=== PATIENT | male | born 1955 | race Caucasian/White ===

== ENCOUNTER 2018-03-11 07:23 | Inpatient (IN) | payer MEDICARE ==
[2018-03-11] VITALS (7 sets, daily range): BP systolic 104–133; BP diastolic 56–79; PULSE 47–69; RESP 16–20; TEMP 97.6–98; O2SAT 92–97
[~2018-03-11] VITALS: Ht 177.8 cm; Wt 113.4 kg
[~2018-03-11 07:23] MED LIST: ASPI1TAB69 PO; ISOS30TA3 PO; LIPI10TA PO; METO10TA PO; TOPR25TA PO; WALKER WHEELS/F1 MIS
[2018-03-11] MEDS ORDERED: LIDOCAINE HCL 1% 10 ML VIAL SQ ONE (07:24)
[2018-03-11] MEDS ORDERED: ASPI81TA81 PO (08:34)
[2018-03-11 08:44] LABS: AUTOMATED NEUTROPHIL # 3.5 TH/MM3 (1.8-7.7); BASOPHIL % 0.4 % (0.0-2.0); EOSINOPHIL # 0.3 TH/MM3 (0-0.4); EOSINOPHIL % 4.5 % (0.0-4.0); HEMATOCRIT 46.3 % (39.0-51.0); HEMOGLOBIN 15.6 GM/DL (13.0-17.0); LYMPH % 29.6 % (9.0-44.0); LYMPHOCYTE # 1.8 TH/MM3 (1.0-4.8); MEAN CORPUSCULAR HEMOGLOBIN 31.7 PG (27.0-34.0); MEAN CORPUSCULAR HGB CONC 33.8 % (32.0-36.0); MEAN PLATELET VOLUME 7.5 FL (7.0-11.0); MONO % 8.8 % (0.0-8.0); MONOCYTE # 0.5 TH/MM3 (0-0.9); NEUT % 56.7 % (16.0-70.0); PLATELET COUNT 228 TH/MM3 (150-450); RED BLOOD COUNT 4.92 MIL/MM3 (4.50-5.90); RED CELL DISTRIBUTION WIDTH 14.1 % (11.6-17.2); WHITE BLOOD COUNT 6.1 TH/MM3 (4.0-11.0)
[2018-03-11 08:51] LABS: PROTHROMBIN TIME - PATIENT 10.4 SEC (9.8-11.6)
[2018-03-11 09:03] LABS: BICARBONATE 21.3 MEQ/L (21.0-32.0); CALCIUM 8.2 MG/DL (8.5-10.1); CREATININE 0.74 MG/DL (0.60-1.30)
[2018-03-11] MEDS ORDERED: GADODIAMIDE PF 287 MG/ML 5 ML VIAL (for RAD MRI) IVCONTRAST ONE (09:14)
[2018-03-11] MEDS ORDERED: MIDAZOLAM HCL 2 MG/2 ML VIAL ONE ×3 (10:03→11:09)
--- NOTE | 2018-03-11 10:09 | RADRPT ---
EXAM DATE: 03/11/2018 9:43 AM EDT AGE/SEX: 62 years / Male INDICATIONS: Liver mass. CLINICAL DATA: This is the patient's initial encounter. Patient reports that signs and symptoms have been present for 2 weeks and indicates a pain score of 0/10. MEDICAL/SURGICAL HISTORY: Carcinoma, colon. CABG. Colon resection. foot surgery COMPARISON: [facility], CT ABDOMEN AND PELVIS W/ CONTRAST, 01/13/2018. . TECHNIQUE: Multiplanar, multisequence images of the abdomen were obtained prior to and following adm inistration of 21 ml Omniscan (gadodiamide) contrast as a single exam dose with dynamic multiphase te chnique. FINDINGS: Liver: The liver measures 19.2 cm in length. It demonstrates signal loss on out of phase imaging kvng cating steatosis. 2 liver lesions are identified and are located within segment 4. The largest measur es 4.5 x 3.4 x 4.3 cm. It demonstrates heterogeneous mildly increased T2 signal. Slightly inferiorly and medially to this lesion is another lesion measuring 10 x 8 mm. Both lesions demonstrate periphera l rim-like enhancement with heterogeneous internal enhancement. Hepatic vasculature is within normal limits. Gallbladder: No gallstones visualized. There is no wall thickening or inflammation. There is a small cystic area in the gallbladder fundus. Spleen: Within normal limits. Pancreas: Within normal limits. Adrenals: Within normal limits. Kidneys: Symmetric size and enhancement. No hydronephrosis or mass. There is a simple cyst of the ele mbar or pole kidney measuring 12 mm and a simple cyst in the left mid kidney measuring 1.7 cm and 1.0 cm. No concerning liver lesion is identified. Other: Aorta is nonaneurysmal. No lymphadenopathy is visualized. The remaining surrounding structur es demonstrate no acute abnormality. There is moderate atherosclerotic disease of the abdominal aorta . Median sternotomy wires are present. There is a partially visualized midline hernia containing fat and small bowel. CONCLUSION: 1. Hepatomegaly with steatosis. 2 suspicious liver lesions are identified with the largest measuring 4.5 cm. The enhancement pattern and history is suspicious for adenocarcinoma metastases. Additionall y, the larger liver lesion has increased in size from the prior study when it measured up to 3.9 cm a nd the second smaller lesion is new. 2. Nonacute findings include moderate atherosclerotic disease and partially visualized anterior abdo isaac wall hernia. Electronically signed by: Fritz Castillo MD 03/11/2018 10:07 AM EDT
[2018-03-11] MEDS: SODIUM CHLOR 0.9% 1000 ML IV SCH ×2 (10:15→19:23)
--- NOTE | 2018-03-11 11:40 | PD.RAD ---
Post CT Procedure Prog Note Pre Procedure Diagnosis: (1) Liver lesion (2) Cancer, colon Post Procedure Diagnosis: (1) Liver lesion (2) Cancer, colon Procedure Date: Mar 11, 2018 Supervising Radiologist: Firtz Castillo Estimated blood loss: minimal. Anesthesia: Conscious Sedation Plan of Activity Patient to Unit: ROPU Patient Condition: Good See PACS Report for procedural detail/treatment Biopsy Imaging Guidance: CT Side: Right Biopsy Procedure: Liver Site: segment 4 (liver dome) lesion Specimen: Core Biopsy Findings: lesion located in far dome of liver. Crossed pleural space during biopsy with development of pneumothorax requiring chest tube. Plan to ROPU then admit to hospitalist service for medical management during admission. We will manage chest tube. Fritz Castillo MD Mar 11, 2018 11:40
--- NOTE | 2018-03-11 11:54 | RADRPT ---
EXAM DATE: 03/11/2018 11:47 AM EDT AGE/SEX: 62 years / Male INDICATIONS: Chest tube placement CLINICAL DATA: This is the patient's initial encounter. Patient reports that signs and symptoms have been present for 1 day and indicates a pain score of 10/10. MEDICAL/SURGICAL HISTORY: . Metastasis liver Chest tube, right. COMPARISON: No prior exams available for comparison. FINDINGS: Pigtail right chest tube is in place and there is an approximate 2.9 cm right apical pneumothorax. Sangeetha ngs are clear. There is evidence for prior median sternotomy. Heart and mediastinum are unremarkable for technique. CONCLUSION: Small right apical pneumothorax. Electronically signed by: Danielle Forrester MD 03/11/2018 11:53 AM EDT
--- NOTE | 2018-03-11 11:56 | RADRPT ---
EXAM DATE: 03/11/2018 11:49 AM EDT AGE/SEX: 62 years / Male INDICATIONS: Liver mass CLINICAL DATA: This is the patient's initial encounter. Patient reports that signs and symptoms have been present for 1 day and indicates a pain score of 0/10. MEDICAL/SURGICAL HISTORY: Carcinoma, colon. Colon resection. COMPARISON: [facility], MRI ABDOMEN W & W/O CONTRAST, 03/11/2018. [facility], CT ABDOMEN AND PELVIS W/ CONTRAST , 01/13/2018. . SEDATION TIME (min): 90 min BIOPSY SITE: . liver MEDICATION(S): 8 mg midazolam (Versed) IV 400 mcg fentanyl (Sublimaze) IV DEVICE(S): 20 gauge BARD biopsy needle 19 gauge Introducer Nine . . PROCEDURE: CT guided . liver biopsy Prior to the procedure informed consent was obtained. Any appropriate prior imaging studies were rev iewed. Using automated exposure control and adjustment of the mA and/or kV according to patient size, radiat ion dose was kept as low as reasonably achievable to obtain optimal diagnostic quality images. DICOM format image data is available electronically for review and comparison. The site was prepped in a sterile fashion. Full sterile technique was used, including cap, mask, katerine rile gloves and gown and a large sterile sheet. Hand hygiene and 2% chlorhexidine and/or betadine/al cohol prep was utilized per protocol for cutaneous antisepsis. The skin and subcutaneous tissues wer e infiltrated with local anesthetic solution. With CT guidance the segment 4 hypodense liver mass was localized. The lesion was located in the live r dome. Biopsy was performed using the prescribed needle as above. Adequate hemostasis was obtained with compression at the puncture site. During the procedure, the pleural space was crossed causing a pneumothorax. Initial attempts were mad e to angle the needle to avoid the pleural space. The patient tolerated the procedure well and there were no complications. The patient was returned to the Radiology Outpatient Unit in stable condition. CONCLUSION: Segment 4 liver mass biopsy was performed. Given the subdiaphragmatic location of the lesion in the l iver dome, the pleural space was crossed causing a right pneumothorax requiring chest tube placement. Electronically signed by: Fritz Castillo MD 03/11/2018 11:54 AM EDT
--- NOTE | 2018-03-11 12:17 | RADRPT ---
EXAM DATE: 03/11/2018 11:59 AM EDT AGE/SEX: 62 years / Male INDICATIONS: Pneumothorax post biopsy CLINICAL DATA: This is the patient's initial encounter. Patient reports that signs and symptoms have been present for 1 day and indicates a pain score of 7/10. MEDICAL/SURGICAL HISTORY: Carcinoma, colon. Colon resection. SEDATION TIME (min): 90 min MEDICATION(S): 8 mg midazolam (Versed) IV sedation for multiple studies 400 mcg fentanyl (Sublimaze) IV DEVICE(S): 8 Fr Pindall . . [place] [facility] [place]. . PROCEDURE : CT guided right chest tube placement. The risks, benefits and alternatives to the procedure were explained and verbal and written consent w as obtained. The site was prepped in sterile fashion. Full sterile technique was used, including ca p, mask, sterile gloves and gown and a large sterile sheet. Hand hygiene and 2% chlorhexidine and/or betadine/alcohol prep was utilized per protocol for cutaneous antisepsis. The skin and subcutaneous tissues were infiltrated with local anesthetic solution. Using automated exposure control and adjus tment of the mA and/or kV according to patient size, radiation dose was kept as low as reasonably ach ievable to obtain optimal diagnostic quality images. DICOM format image data is available electronic ally for review and comparison. Following the liver biopsy, a pneumothorax developed and therefore chest tube was placed. Using a tro car technique, an anterior 8 Ch[place] nonlocking pleural catheter was placed with the pigtail near the apex of the right hemithorax. Wall suction was applied. Post procedure images demonstrate satisfacto ry position of the tube. The catheter was sutured in place and a Percu-Stay was applied. The patient tolerated the procedure well and there were no complications. The patient was sent to pos t anesthesia recovery in stable condition. CONCLUSION: 1. Uncomplicated right chest tube placement as above. Electronically signed by: Fritz Castillo MD 03/11/2018 12:16 PM EDT
[2018-03-11] MEDS ORDERED: PILL SPLITTER OTHER PRN (12:30)
[2018-03-11] MEDS: HYDROmorphone HCL 2 MG TAB PO PRN ×2 (12:36→13:30)
--- NOTE | 2018-03-11 13:12 | HHI.HP ---
HPI Service [facility] Hospitalists Primary Care Physician No Primary Care Physician Admission Diagnosis Diagnoses: Chief Complaint: Left sided chets pain Travel History International Travel<30 Days: No Contact w/Intl Traveler <30 Da: No Traveled to Known Affected Are: No History of Present Illness This is a 62-year-old male with past medical history significant for colon cancer status post partial colectomy, CAD status post CABG and hyperlipidemia who presents to [facility] for elective liver biopsy. The patient underwent a liver biopsy after which the patient developed pneumothorax requiring a chest tube placement. The patient complains of pain in the right side of the chest were the entry of the chest tube is observed. Patient states chest pain is constant, worsened with deep inspiration, 6/10 intensity. Otherwise denies any fevers, chills, feels mildly short of breath. The patient also denies any nausea, abdominal pain. Review of Systems As per HPI, other systems reviewed by me and negative. Past Family Social History Past Medical History 1. Colon cancer status post partial colectomy. 2. CAD status post CABG 4. 3. Hyperlipidemia. Past Surgical History 1. CABG 4. 2. Partial colectomy. Reported Medications Reported Meds & Active Scripts Active Reported Aspir-81 (Aspirin) 81 Mg Tabdr 81 Mg PO DAILY Lipitor (Atorvastatin Calcium) 10 Mg Tab Unknown Dose PO HS Isosorbide Mononitrate ER (Isosorbide Mononitrate) 30 Mg Mariah Unknown Dose PO DAILY Toprol XL (Metoprolol Succinate) 25 Mg Tab Unknown Dose PO DAILY Allergies: Coded Allergies: No Known Allergies (Unverified , 08/19/16) Active Ordered Medications Current Medications Medications (Trade) Dose Ordered Sig/Lois Route Start Time Stop Time Status Last Admin Sodium Chloride 1,000 ml @ 30 mls/hr Q24H IV 03/11/18 10:15 03/11/18 10:15 (Dilaudid) 1 mg Q6H PRN PO 03/11/18 11:45 03/11/18 12:36 (Pill Splitter) 1 ea UNSCH PRN OTHER 03/11/18 12:30 (NS Flush) 2 ml UNSCH PRN IV FLUSH 03/11/18 13:15 (NS Flush) 2 ml BID IV FLUSH 03/11/18 21:00 (Tylenol) 650 mg Q4H PRN PO 03/11/18 13:15 (Narcan Inj) 0.4 mg UNSCH PRN IV PUSH 03/11/18 13:15 (Mirella-Colace) 1 tab BID PO 03/11/18 21:00 (Milk Of Magnesia Liq) 30 ml Q12H PRN PO 03/11/18 13:15 (Senokot) 17.2 mg Q12H PRN PO 03/11/18 13:15 (Dulcolax Supp) 10 mg DAILY PRN RECTAL 03/11/18 13:15 (Lactulose Liq) 30 ml DAILY PRN PO 03/11/18 13:15 (Percocet 5-325 Mg) 1 tab Q4H PRN PO 03/11/18 15:15 03/11/18 15:21 (Percocet 5-325 Mg) 2 tab Q4H PRN PO 03/11/18 15:15 Family History Patient's father of a massive HI at age 42. Social History The patient states he smokes less than half a pack per day. Denies drinking alcohol. The patient denies illicit drug use. Physical Exam Vital Signs Vital Signs Date Time Temp Pulse Resp B/P (MAP) Pulse Ox O2 Delivery O2 Flow Rate FiO2 03/11/18 12:35 65 18 116/56 (76) 96 03/11/18 12:05 47 16 104/60 (75) 95 03/11/18 11:50 97.8 52 16 124/63 (83) 93 03/11/18 08:21 92 Room Air 03/11/18 08:11 97.6 67 20 126/79 (95) 92 Physical Exam GENERAL: This is a well-nourished, well-developed patient, in no apparent distress. SKIN: No rashes, ecchymoses or lesions. Cool and dry. HEAD: Atraumatic. Normocephalic. No temporal or scalp tenderness. EYES: Pupils equal round and reactive. Extraocular motions intact. No scleral icterus. No injection or drainage. ENT: Nose without bleeding, purulent drainage or septal hematoma. Throat without erythema, tonsillar hypertrophy or exudate. Uvula midline. Airway patent. NECK: Trachea midline. No JVD or lymphadenopathy. Supple, nontender, no meningeal signs. CARDIOVASCULAR: Regular rate and rhythm without murmurs, gallops, or rubs. RESPIRATORY: Clear to auscultation. Breath sounds equal bilaterally. No wheezes , rales, or rhonchi. Chest tube on anterior right chest. GASTROINTESTINAL: Abdomen soft, non-tender, nondistended. No hepato-splenomegaly , or palpable masses. No guarding. MUSCULOSKELETAL: Extremities without clubbing, cyanosis, or edema. No joint tenderness, effusion, or edema noted. No calf tenderness. Negative Homans sign bilaterally. NEUROLOGICAL: Awake and alert. Cranial nerves II through XII intact. Motor and sensory grossly within normal limits. Five out of 5 muscle strength in all muscle groups. Normal speech. Laboratory Laboratory Tests Test 03/11/18 08:15 White Blood Count 6.1 Red Blood Count 4.92 Hemoglobin 15.6 Hematocrit 46.3 Mean Corpuscular Volume 94.0 Mean Corpuscular Hemoglobin 31.7 Mean Corpuscular Hemoglobin Concent 33.8 Red Cell Distribution Width 14.1 Platelet Count 228 Mean Platelet Volume 7.5 Neutrophils (%) (Auto) 56.7 Lymphocytes (%) (Auto) 29.6 Monocytes (%) (Auto) 8.8 Eosinophils (%) (Auto) 4.5 Basophils (%) (Auto) 0.4 Neutrophils # (Auto) 3.5 Lymphocytes # (Auto) 1.8 Monocytes # (Auto) 0.5 Eosinophils # (Auto) 0.3 Basophils # (Auto) 0.0 CBC Comment DIFF FINAL Differential Comment Prothrombin Time 10.4 Prothromb Time International Ratio 1.0 Activated Partial Thromboplast Time 26.8 Blood Urea Nitrogen 11 Creatinine 0.74 Random Glucose 101 Calcium Level 8.2 Sodium Level 143 Potassium Level 4.2 Chloride Level 112 Carbon Dioxide Level 21.3 Anion Gap 10 Estimat Glomerular Filtration Rate 106 Result Diagram: 03/11/18 0815 03/11/18 0815 Imaging Last Impressions Chest X-Ray 03/11/18 1136 Signed Impressions: CONCLUSION: Small right apical pneumothorax. Chest Tube Insertion 03/11/18 1117 Signed Impressions: CONCLUSION: 1. Uncomplicated right chest tube placement as above. Liver Biopsy CT 03/11/18 0910 Signed Impressions: CONCLUSION: Segment 4 liver mass biopsy was performed. Given the subdiaphragmatic location of the lesion in the liver dome, the pleural space was crossed causing a right pneumothorax requiring chest tube placement. Abdomen MRI 03/11/18 0000 Signed Impressions: CONCLUSION: 1. Hepatomegaly with steatosis. 2 suspicious liver lesions are identified with the largest measuring 4.5 cm. The enhancement pattern and history is suspiciou s for adenocarcinoma metastases. Additionally, the larger liver lesion has incr eased in size from the prior study when it measured up to 3.9 cm and the second smaller lesion is new. 2. Nonacute findings include moderate atherosclerotic disease and partially vi sualized anterior abdominal wall hernia. Caprini VTE Risk Assessment Caprini VTE Risk Assessment: Mod/High Risk (score >= 2) VTE Pharm Contraindication: Patient sp liver biopsy Caprini Risk Assessment Model Point Value = 1 Point Value = 2 Point Value = 3 Point Value = 5 Age 41-60 Minor surgery BMI > 25 kg/m2 Swollen legs Varicose veins or History of unexplained or recurrent spontaneous Oral contraceptives or hormone replacement Sepsis (< 1 month) Serious lung disease, including pneumonia (< 1 month) Abnormal pulmonary function Acute myocardial infarction Congestive heart failure (< 1 month) History of inflammatory bowel disease Medical patient at bed rest Age 61-74 Arthroscopic surgery Major open surgery (> 45 min) Laparoscopic surgery (> 45 min) Malignancy Confined to bed (> 72 hours) Immobilizing plaster cast Central venous access Age >= 75 History of VTE Family history of VTE Factor V Leiden Prothrombin [id number] Lupus anticoagulant Anticardiolipin antibodies Elevated serum homocysteine Heparin-induced thrombocytopenia Other congenital or acquired thrombophilia Stroke (< 1 month) Elective arthroplasty Hip, pelvis, or leg fracture Acute spinal cord injury (< 1 month) Prophylaxis Regimen Total Risk Factor Score Risk Level Prophylaxis Regimen 0-1 Low Early ambulation 2 Moderate Order ONE of the following: *Sequential Compression Device (SCD) *Heparin 5000 units SQ BID 3-4 Higher Order ONE of the following medications: *Heparin 5000 units SQ TID *Enoxaparin/Lovenox 40 mg SQ daily (WT < 150 kg, CrCl > 30 mL/min) *Enoxaparin/Lovenox 30 mg SQ daily (WT < 150 kg, CrCl > 10-29 mL/min) *Enoxaparin/Lovenox 30 mg SQ BID (WT < 150 kg, CrCl > 30 mL/min) AND/OR *Sequential Compression Device (SCD) 5 or more Highest Order ONE of the following medications: *Heparin 5000 units SQ TID (Preferred with Epidurals) *Enoxaparin/Lovenox 40 mg SQ daily (WT < 150 kg, CrCl > 30 mL/min) *Enoxaparin/Lovenox 30 mg SQ daily (WT < 150 kg, CrCl > 10-29 mL/min) *Enoxaparin/Lovenox 30 mg SQ BID (WT < 150 kg, CrCl > 30 mL/min) AND *Sequential Compression Device (SCD) Assessment and Plan Problem List: (1) Liver lesion ICD Code: K76.9 - Liver disease, unspecified Plan: As shown on MRI described above and reviewed by me. Patient with several liver lesions that are suspicious for metastatic adenocarcinoma. Patient status post rebiopsy. Follow-up pathology. (2) Pneumothorax after biopsy ICD Code: J95.811 - Postprocedural pneumothorax Plan: Status post emergent chest tube placement by interventional radiology. Supplemental O2 to keep oxygen saturation more than 92%. Management of chest tube as per interventional radiology. Chest x-ray shows a small right apical pneumothorax. Repeat a chest x-ray in a.m. Oral Percocet for pain control. (3) CAD (coronary artery disease) ICD Code: I25.10 - Atherosclerotic heart disease of [place] coronary artery without angina pectoris Plan: The patient has some chest pain but it is localized at the site of entry of the chest tube. Hold aspirin for 24 hours given recent liver biopsy. We will also hold metoprolol since blood pressure is stable borderline low. May be resumed in a.m. if BP stable. Assessment and Plan DVT prophylaxis: SCDs, no chemoprophylaxis given recent liver biopsy. Code Status Full code Discussed Condition With RN, patient. Physician Certification 2 Midnight Certification Type: Admission for Inpatient Services Order for Inpatient Services The services are ordered in accordance with Medicare regulations or non- Medicare payer requirements, as applicable. In the case of services not specified as inpatient-only, they are appropriately provided as inpatient services in accordance with the 2-midnight benchmark. Estimated LOS (days): 2 days is the estimated time the patient will need to remain in the hospital, assuming treatment plan goals are met and no additional complications. Post-Hospital Plan: Home Problem Qualifiers (1) CAD (coronary artery disease): Qualified Codes: I25.10 - Atherosclerotic heart disease of [place] coronary artery without angina pectoris Berry Jin MD Mar 11, 2018 13:12
[2018-03-11] MEDS ORDERED: SODIUM CHLORIDE 0.9% FLUSH 10 ML FLUSH IV FLUSH PRN (13:15)
[2018-03-11] MEDS ORDERED: NALOXONE HCL 0.4 MG/ML AMP IV PUSH PRN (13:15)
[2018-03-11] MEDS ORDERED: SENNOSIDES 8.6 MG TAB PO PRN (13:15)
[2018-03-11] MEDS ORDERED: MAGNESIUM HYDROXIDE SUSP 30 ML CUP PO PRN (13:15)
[2018-03-11] MEDS ORDERED: BISACODYL 10 MG SUPP RECTAL PRN (13:15)
[2018-03-11] MEDS ORDERED: ACETAMINOPHEN 325 MG TAB PO PRN (13:15)
[2018-03-11] MEDS ORDERED: LACTULOSE SYRUP 20 GM/30 ML CUP PO PRN (13:15)
[2018-03-11] MEDS ORDERED: oxyCODONE/ACETAMINOPHEN 5 MG/325 MG TAB PO PRN (15:15)
[2018-03-11] MEDS: oxyCODONE/ACETAMINOPHEN 5 MG/325 MG TAB PO PRN (19:26)
[2018-03-11] MEDS ORDERED: DOCUSATE SODIUM 50 MG/SENNA 8.6 MG TAB PO SCH (21:00)
[2018-03-11] MEDS ORDERED: SODIUM CHLORIDE 0.9% FLUSH 10 ML FLUSH IV FLUSH SCH (21:00)
[2018-03-12] VITALS: BP 121/63; PULSE 61; RESP 18; TEMP 97.5; O2SAT 93
[2018-03-12] MEDS: oxyCODONE/ACETAMINOPHEN 5 MG/325 MG TAB PO PRN ×2 (03:35→08:38)
[2018-03-12 04:00] VITALS: BP 132/70; PULSE 68; RESP 19; TEMP 98.4; O2SAT 94
[2018-03-12 07:24] LABS: AUTOMATED NEUTROPHIL # 3.1 TH/MM3 (1.8-7.7); BASOPHIL % 0.5 % (0.0-2.0); EOSINOPHIL # 0.2 TH/MM3 (0-0.4); EOSINOPHIL % 4.4 % (0.0-4.0); HEMATOCRIT 44.4 % (39.0-51.0); HEMOGLOBIN 14.9 GM/DL (13.0-17.0); LYMPHOCYTE # 1.6 TH/MM3 (1.0-4.8); MEAN CORPUSCULAR HEMOGLOBIN 31.9 PG (27.0-34.0); MEAN CORPUSCULAR HGB CONC 33.6 % (32.0-36.0); MEAN PLATELET VOLUME 8.1 FL (7.0-11.0); MONO % 8.7 % (0.0-8.0); MONOCYTE # 0.5 TH/MM3 (0-0.9); NEUT % 57.4 % (16.0-70.0); PLATELET COUNT 189 TH/MM3 (150-450); RED BLOOD COUNT 4.68 MIL/MM3 (4.50-5.90); RED CELL DISTRIBUTION WIDTH 13.8 % (11.6-17.2); WHITE BLOOD COUNT 5.4 TH/MM3 (4.0-11.0)
[2018-03-12 07:30] VITALS: PULSE 74
[2018-03-12 07:44] LABS: AST (GOT) 17 U/L (15-37); BICARBONATE 23.2 MEQ/L (21.0-32.0); BLOOD UREA NITROGEN 10 MG/DL (7-18); CALCIUM 8.6 MG/DL (8.5-10.1); CHLORIDE 109 MEQ/L (98-107); CREATININE 0.79 MG/DL (0.60-1.30); GLOMERULAR FILTRATION RATE 99 ML/MIN (>89); GLUCOSE,RANDOM 141 MG/DL (74-106); SODIUM (NA) 142 MEQ/L (136-145)
[2018-03-12 07:45] LABS: ALT (GPT) 33 U/L (12-78)
[2018-03-12 07:47] LABS: ALKALINE PHOSPHATASE 95 U/L (45-117); TOTAL PROTEIN 6.3 GM/DL (6.4-8.2)
[2018-03-12 08:00] VITALS: BP 127/60; PULSE 65; RESP 18; TEMP 97.8; O2SAT 94
[2018-03-12 08:42] VITALS: O2SAT 93
--- NOTE | 2018-03-12 09:16 | HHI.PR ---
Subjective Remarks in no acute distress. no sob. has minimal pain to the site of the chest tube. no fever or any other complaints. Objective Vitals Vital Signs Date Time Temp Pulse Resp B/P (MAP) Pulse Ox O2 Delivery O2 Flow Rate FiO2 03/12/18 08:42 93 21 03/12/18 08:00 97.8 65 18 127/60 (82) 94 03/12/18 04:00 98.4 68 19 132/70 (90) 94 03/12/18 00:00 97.5 61 18 121/63 (82) 93 03/11/18 20:00 97.8 51 19 133/63 (86) 94 03/11/18 16:00 98.0 52 18 122/65 (84) 95 03/11/18 13:36 19 03/11/18 13:05 69 18 118/68 (85) 97 03/11/18 12:35 65 18 116/56 (76) 96 03/11/18 12:05 47 16 104/60 (75) 95 03/11/18 11:50 97.8 52 16 124/63 (83) 93 I/O 03/11/18 03/11/18 03/11/18 03/12/18 03/12/18 03/12/18 07:00 15:00 23:00 07:00 15:00 23:00 Intake Total 60 ml 400 ml Output Total 0 ml Balance 60 ml 0 ml 400 ml Intake Oral 400 ml IV Total 60 ml Output Chest Tube Drainage Total 0 ml # Voids 4 Result Diagram: 03/12/18 0552 03/12/18 0552 Imaging Last Impressions Chest X-Ray 03/11/18 1136 Signed Impressions: CONCLUSION: Small right apical pneumothorax. Chest Tube Insertion 03/11/18 1117 Signed Impressions: CONCLUSION: 1. Uncomplicated right chest tube placement as above. Liver Biopsy CT 03/11/18 0910 Signed Impressions: CONCLUSION: Segment 4 liver mass biopsy was performed. Given the subdiaphragmatic location of the lesion in the liver dome, the pleural space was crossed causing a right pneumothorax requiring chest tube placement. Abdomen MRI 03/11/18 0000 Signed Impressions: CONCLUSION: 1. Hepatomegaly with steatosis. 2 suspicious liver lesions are identified with the largest measuring 4.5 cm. The enhancement pattern and history is suspiciou s for adenocarcinoma metastases. Additionally, the larger liver lesion has incr eased in size from the prior study when it measured up to 3.9 cm and the second smaller lesion is new. 2. Nonacute findings include moderate atherosclerotic disease and partially vi sualized anterior abdominal wall hernia. Objective Remarks GENERAL: This is a well-nourished, well-developed patient, in no apparent distress. CARDIOVASCULAR: Regular rate and regular rhythm without murmurs, gallops, or rubs. RESPIRATORY: Clear to auscultation. Breath sounds equal bilaterally. No wheezes , rales, or rhonchi. GASTROINTESTINAL: Abdomen soft, non-tender, nondistended. Normal, active bowel sounds MUSCULOSKELETAL: Extremities without clubbing, cyanosis, or edema. NEURO: Alert & Oriented x4 to person, place, time, situation. Moves all ext x4 Procedures liver biopsy/ chest tube placement. Medications and IVs Inpatient Medications Acetaminophen (Tylenol) 650 mg Q4H PRN PO TEMP > 100.4; Start 03/11/18 at 13:15 Bisacodyl (Dulcolax Supp) 10 mg DAILY PRN RECTAL SEVERE CONSITIPATION; Start at 13:15 Hydromorphone HCl (Dilaudid) 1 mg Q6H PRN PO Pain 1-10 post liver biopsy Last administered on 03/11/18at 12:36; Start 03/11/18 at 11:45 Lactulose (Lactulose Liq) 30 ml DAILY PRN PO SEVERE CONSITIPATION; Start at 13:15 Magnesium Hydroxide (Milk Of Magnesia Liq) 30 ml Q12H PRN PO Mild constipation ; Start 03/11/18 at 13:15 Miscellaneous (Pill Splitter) 1 ea UNSCH PRN OTHER SEE LABEL COMMENTS; Start at 12:30 Naloxone HCl (Narcan Inj) 0.4 mg UNSCH PRN IV PUSH SEE LABEL COMMENTS; Start at 13:15 Oxycodone/ Acetaminophen (Percocet 5-325 Mg) 2 tab Q4H PRN PO PAIN SCALE 5 TO 10 Last administered on 03/12/18at 08:38; Start 03/11/18 at 15:15 Senna/Docusate Sodium (Mirella-Colace) 1 tab BID PO ; Start 03/11/18 at 21:00 Sennosides (Senokot) 17.2 mg Q12H PRN PO Moderate constipation; Start 03/11/18 at 13:15 Sodium Chloride (NS Flush) 2 ml BID IV FLUSH Last administered on 03/11/18at 19: 23; Start 03/11/18 at 21:00 A/P Problem List: (1) Liver lesion ICD Code: K76.9 - Liver disease, unspecified (2) Pneumothorax after biopsy ICD Code: J95.811 - Postprocedural pneumothorax (3) CAD (coronary artery disease) ICD Code: I25.10 - Atherosclerotic heart disease of [place] coronary artery without angina pectoris Assessment and Plan (1) Liver lesion As shown on MRI described above. Patient with several liver lesions that are suspicious for metastatic adenocarcinoma. Patient status post biopsy. Follow-up pathology. (2) Pneumothorax after biopsy Status post emergent chest tube placement by interventional radiology. Supplemental O2 to keep oxygen saturation more than 92%. Management of chest tube as per interventional radiology. Chest x-ray shows a small right apical pneumothorax. Oral Percocet for pain control. (3) CAD (coronary artery disease) The patient has some chest pain but it is localized at the site of entry of the chest tube. resume metoprolol upon discharge. Assessment and Plan DVT prophylaxis: SCDs, no chemoprophylaxis given recent liver biopsy. Discharge Planning dc home when chest tube has been removed and cleared by IR. Problem Qualifiers (1) CAD (coronary artery disease): Qualified Codes: I25.10 - Atherosclerotic heart disease of [place] coronary artery without angina pectoris Leonila Fitzpatrick MD Mar 12, 2018 09:16
--- NOTE | 2018-03-12 10:07 | RADRPT ---
EXAM DATE: 03/12/2018 10:00 AM EDT AGE/SEX: 62 years / Male INDICATIONS: Right chest tube removal. CLINICAL DATA: This is the patient's subsequent encounter. Patient reports that signs and symptoms h ave been present for 2 days and indicates a pain score of 0/10. MEDICAL/SURGICAL HISTORY: Carcinoma, colon. Carcinoma, colon. Colon resection CABG. Colon re section. COMPARISON: [facility] [place], CHEST EXPIRATION ONLY, 03/12/2018. . FINDINGS: Portable AP upright expiratory view of the chest demonstrates a normal-sized cardiac silhouette post median sternotomy. Lungs are mildly underinflated with mild bibasilar opacity. The right chest tube h as been completely removed. No pneumothorax is identified. Bones demonstrate no acute finding. CONCLUSION: No pneumothorax is visualized following right chest tube removal. Electronically signed by: Fritz Castillo MD 03/12/2018 10:06 AM EDT
--- NOTE | 2018-03-12 10:21 | RADRPT ---
EXAM DATE: 03/12/2018 9:09 AM EDT AGE/SEX: 62 years / Male INDICATIONS: Pneumothorax. CLINICAL DATA: This is the patient's initial encounter. Patient reports that signs and symptoms have been present for 3 days and indicates a pain score of 0/10. MEDICAL/SURGICAL HISTORY: None. CABG. COMPARISON: [facility] [place], CHEST SINGLE AP, 03/11/2018. . FINDINGS: A right-sided pigtail thoracostomy tube has pulled back and now may be out of the pleural space overl andie the lower right chest. There is no evidence of pneumothorax. Aeration is stable. Cardiac contour s are stable. CONCLUSION: Thoracostomy tube is dislodged, potentially out of the pleural space at this point. No pneumothorax. Electronically signed by: Fritz Sevilla MD 03/12/2018 10:19 AM EDT
[2018-03-12 12:00] VITALS: BP 126/72; PULSE 52; PULSE 65; RESP 18; TEMP 79.8; O2SAT 96
--- NOTE | 2018-03-12 13:51 | HHI.PR ---
Addendum To [facility] Progress Not Reason for addendum: Additonal documentation (chest tube has been removed- spoke with IR and the patient was cleared for discharge- will dc home- f/u with pcp. pathology pending at this time.) Leonila Fitzpatrick MD Mar 12, 2018 13:51
--- NOTE | 2018-03-12 13:55 | HHI.DS ---
Discharge Summary Admission Date Mar 11, 2018 at 14:08 Discharge Date: Mar 12, 2018 Admitting Diagnosis pneumothorax- s/p liver biopsy. (1) Liver lesion ICD Code: K76.9 - Liver disease, unspecified Diagnosis: Principal (2) Pneumothorax after biopsy ICD Code: J95.811 - Postprocedural pneumothorax Diagnosis: Principal (3) CAD (coronary artery disease) ICD Code: I25.10 - Atherosclerotic heart disease of [place] coronary artery without angina pectoris Diagnosis: Secondary Procedures liver biopsy/ chest tube placement. Brief History - From Admission This is a 62-year-old male with past medical history significant for colon cancer status post partial colectomy, CAD status post CABG and hyperlipidemia who presents to [facility] for elective liver biopsy. The patient underwent a liver biopsy after which the patient developed pneumothorax requiring a chest tube placement. The patient complains of pain in the right side of the chest were the entry of the chest tube is observed. Patient states chest pain is constant, worsened with deep inspiration, 6/10 intensity. Otherwise denies any fevers, chills, feels mildly short of breath. The patient also denies any nausea, abdominal pain. CBC/BMP: 03/12/18 0552 03/12/18 0552 Significant Findings Laboratory Tests Test 03/11/18 08:15 03/12/18 05:52 Monocytes (%) (Auto) 8.8 % (0.0-8.0) 8.7 % (0.0-8.0) Eosinophils (%) (Auto) 4.5 % (0.0-4.0) 4.4 % (0.0-4.0) Calcium Level 8.2 MG/DL (8.5-10.1) Chloride Level 112 MEQ/L (98-107) 109 MEQ/L (98-107) Random Glucose 141 MG/DL (74-106) Total Protein 6.3 GM/DL (6.4-8.2) Albumin 3.0 GM/DL (3.4-5.0) Imaging Last Impressions Chest X-Ray 03/12/18 0000 Signed Impressions: CONCLUSION: No pneumothorax is visualized following right chest tube removal. Chest Tube Insertion 03/11/18 1117 Signed Impressions: CONCLUSION: 1. Uncomplicated right chest tube placement as above. Liver Biopsy CT 03/11/18 0910 Signed Impressions: CONCLUSION: Segment 4 liver mass biopsy was performed. Given the subdiaphragmatic location of the lesion in the liver dome, the pleural space was crossed causing a right pneumothorax requiring chest tube placement. Abdomen MRI 03/11/18 0000 Signed Impressions: CONCLUSION: 1. Hepatomegaly with steatosis. 2 suspicious liver lesions are identified with the largest measuring 4.5 cm. The enhancement pattern and history is suspiciou s for adenocarcinoma metastases. Additionally, the larger liver lesion has incr eased in size from the prior study when it measured up to 3.9 cm and the second smaller lesion is new. 2. Nonacute findings include moderate atherosclerotic disease and partially vi sualized anterior abdominal wall hernia. PE at Discharge GENERAL: This is a well-nourished, well-developed patient, in no apparent distress. CARDIOVASCULAR: Regular rate and regular rhythm without murmurs, gallops, or rubs. RESPIRATORY: Clear to auscultation. Breath sounds equal bilaterally. No wheezes , rales, or rhonchi. GASTROINTESTINAL: Abdomen soft, non-tender, nondistended. Normal, active bowel sounds MUSCULOSKELETAL: Extremities without clubbing, cyanosis, or edema. NEURO: Alert & Oriented x4 to person, place, time, situation. Moves all ext x4 Hospital Course (1) Liver lesion As shown on MRI described above. Patient with several liver lesions that are suspicious for metastatic adenocarcinoma. Patient status post biopsy. Follow-up pathology. (2) Pneumothorax after biopsy Status post emergent chest tube placement by interventional radiology. Supplemental O2 to keep oxygen saturation more than 92%. Management of chest tube as per interventional radiology. Chest x-ray shows a small right apical pneumothorax. Oral Percocet for pain control. (3) CAD (coronary artery disease) The patient has some chest pain but it is localized at the site of entry of the chest tube. resume metoprolol upon discharge. Pt Condition on Discharge: Stable Discharge Disposition: Discharge Home Discharge Time: <= 30 minutes Discharge Instructions DIET: Follow Instructions for: Heart Healthy Diet Activities you can perform: Regular-No Restrictions Other Activity Instructions: heavy lifting. Leonila Fitzpatrick MD Mar 12, 2018 13:55
[2018-03-12] MEDS ORDERED: NORC5TAB PO (14:14)
--- NOTE | 2018-03-12 14:39 | RADRPT ---
EXAM DATE: 03/12/2018 10:15 AM EDT AGE/SEX: 62 years / Male INDICATIONS: CLINICAL DATA: This is the patient's encounter. Patient reports that signs and symptoms have been pr esent for and indicates a pain score of . MEDICAL/SURGICAL HISTORY: COMPARISON: No prior exams available for comparison. DEVICE(S): Vaseline occlusive dressing GAUZE+SILK TAPE PROCEDURE: 1. Chest tube removal. Using aseptic technique the previously placed chest tube was easily removed in one piece and Vaseline gauze and sterile dressing was applied. Chest radiograph is to be obtained. CONCLUSION: Uncomplicated chest tube removal. Electronically signed by: Fritz Sevilla MD 03/12/2018 1:57 PM EDT
[2018-03-14] MEDS: HYDROmorphone HCL 2 MG TAB PO PRN (13:30)
== END 2018-03-12 14:56 | disposition home or self-care (01) | DRG 200 ==
LOC: HRAD 07:23 → HRIP 07:27 → HRAD 14:01 → N05A 14:08
PROVIDERS: ADMIT Internal Medicine; ATTEND Internal Medicine
PROC: 0FB13ZX Excision of Right Lobe Liver, Percutaneous Approach, Diagnostic (ICD-10-PCS; principal; 2018-03-11)
PROC: 0W9930Z Drainage of Right Pleural Cavity with Drainage Device, Percutaneous Approach (ICD-10-PCS; 2018-03-11)
DX: J95.811 Postprocedural pneumothorax (principal); C78.7 Secondary malignant neoplasm of liver and intrahepatic bile duct; I25.10 Atherosclerotic heart disease of native coronary artery without angina pectoris; E78.5 Hyperlipidemia, unspecified; Z90.49 Acquired absence of other specified parts of digestive tract; Z95.1 Presence of aortocoronary bypass graft; Z85.038 Personal history of other malignant neoplasm of large intestine; F17.210 Nicotine dependence, cigarettes, uncomplicated
CPT/HCPCS: 32557; 47000; 71045; 74183; 77012; 80048; 80053; 85025; 85610; 85730; 88307; 99152; 99153; A9579; C1729; J2250; J3010; J7030

== ENCOUNTER 2018-05-07 07:01 | Observation (INO) ==
[2018-05-07] MEDS ORDERED: Metoprolol Tartrate 25 MG Tablet PO SCH (07:45)
[2018-05-07] MEDS ORDERED: Chlorhexidine Gluconate 2% 1 Pack (2 Cloths) TOPICAL SCH (07:45)
[2018-05-07] MEDS ORDERED: ceFAZolin 2 GM Premix Inj 2 GM/100 ML BAG IV.SIG ONE (07:50)
[2018-05-07] MEDS ORDERED: Sodium Chlor 0.9% Inj 500 ML IV.SIG SCH (08:00)
[2018-05-07] MEDS ORDERED: ceFAZolin Inj 2,000 MG in Sodium Chlor 0.9% Inj 100 ML IV.SIG SCH (08:00)
[2018-05-07] MEDS ORDERED: Lidocaine 1%/Epinephrine 1:100,000 Inj 20 ML Vial ONE (08:04)
[2018-05-07] MEDS ORDERED: Bupivacaine/Epinephrine Inj 0.25% 50 ML Vial ONE (08:04)
[2018-05-07 08:08] LABS: Baso # (Auto) 0.1 th/mm3 (0.0-0.2); Baso % (Auto) 0.9 % (0.0-2.0); Eos # (Auto) 0.3 th/mm3 (0.0-0.4); Eos % (Auto) 3.6 % (0.0-4.0); Hematocrit 43.8 % (39.0-51.0); Hemoglobin 14.9 gm/dL (13.0-17.0); Lymph # (Auto) 1.5 th/mm3 (1.0-4.8); Lymph % (Auto) 20.6 % (9.0-44.0); Mean Corpuscular HGB Conc 34.1 % (32.0-36.0); Mean Corpuscular Hemoglobin 32.7 pg (27.0-34.0); Mean Corpuscular Volume 95.9 fL (80.0-100.0); Mean Platelet Volume 8.1 fL (7.0-11.0); Mono # (Auto) 0.7 th/mm3 (0.0-0.9); Neut # (Auto) 4.6 th/mm3 (1.8-7.7); Neut % (Auto) 64.9 % (16.0-70.0); Platelet Count 216 th/mm3 (150-450); Red Blood Count 4.57 mil/mm3 (4.50-5.90); Red Cell Distribution Width 14.3 % (11.6-17.2); White Blood Count 7.1 th/mm3 (4.0-11.0)
--- NOTE | 2018-05-07 08:30 | ECG ---
Date Performed: 05/07/2018 Time Performed: 07:37:44 PTAGE: 62 years EKG: SINUS BRADYCARDIA WITH SINUS ARRHYTHMIA RIGHT BUNDLE BRANCH BLOCK ABNORMAL ECG PREVIOUS TRACING : 08/25/2016 14.26 No significant change from previous tracing noted. DOCTOR: Jose Miller Interpretating Date/Time 05/07/2018 08:29:53
[2018-05-07 08:31] LABS: Anion Gap 7 meq/L (5-15); Blood Urea Nitrogen 14 mg/dL (7-18); Calcium 8.5 mg/dL (8.5-10.1); Carbon Dioxide 23.8 meq/L (21.0-32.0); Chloride 112 meq/L (98-107); Glomerular Filtration Rate Greater Than 89 mL/min (>89); Glucose,Random 121 mg/dL (74-106); Potassium 4.2 meq/L (3.5-5.1); Sodium 143 meq/L (136-145)
[2018-05-07] MEDS ORDERED: Bupivacaine Liposomal PF 1.3% Inj 20 ML Vial ONE (08:41)
[2018-05-07] MEDS ORDERED: Bupivacaine PF 0.5% Inj 30 ML Vial ONE (08:41)
[2018-05-07] MEDS ORDERED: HYDROmorphone PF Inj 1 MG/ML Ampul IV.PUSH PRN (10:14)
[2018-05-07] MEDS ORDERED: Bisacodyl 10 MG Supp RECTAL PRN (10:14)
[2018-05-07] MEDS ORDERED: Post-op Orders (for Pharmacy) OTHER ONE (10:14)
[2018-05-07] MEDS ORDERED: Sod Chloride 0.9% Inj 1,000 ML IV.CONT SCH (10:15)
[2018-05-07] MEDS ORDERED: fentaNYL Citrate Inj 100 MCG/2 ML Ampul ONE (10:25)
--- NOTE | 2018-05-07 10:27 | MP ---
cc: Darshan Finley MD, John T MD DATE OF OPERATION: 05/07/2018 DATE OF PROCEDURE: 05/07/2018 PREOPERATIVE DIAGNOSES: 1. Metastatic colon cancer. 2. Symptomatic incisional hernia. POSTOPERATIVE DIAGNOSES: 1. Incisional hernia. 2. Metastatic colon cancer. PROCEDURE: Repair of incisional hernia just above the umbilicus from a horizontal incision from his colon resection. PROCEDURE PERFORMED: Primary reapproximation because of his need of chemotherapy. ANESTHESIA: General with TAP block. INDICATIONS: This is a 62-year-old gentleman who underwent a colon resection. He is requiring chemotherapy for metastatic disease to his liver. He has an incisional hernia that is getting bigger. Plans were made for primary repair because of his need for chemotherapy in the very near future. PROCEDURE: The patient is taken to the operating room, placed in the supine position. After anesthesia, his abdomen is prepped with Betadine. Timeout is done. He is given preoperative antibiotics. He had a TAP block done by anesthesia for postop pain control. We make an incision at his previous incision, just to the left of the midline, above the umbilicus and laterally about 8 cm. It is taken down through subcutaneous tissue, identifying the hernia sac. This is grasped and opened. Hernia sac is then excised. It appears that he had a previous umbilical hernia with a plug, which is palpated. The defect measures approximately 5 cm. We dissect circumferentially to the normal-appearing fascia. There is somewhat of a thinned out area a little bit more lateral. This is dissected out as well and imbricated upon itself, all done with 0 Ethibond. The fascial defect is then reapproximated with a 0 Ethibond to completely repair the incisional hernia. We then irrigate. Hemostasis is assured. The peritoneal surfaces are noted to be smooth, without evidence of disease. The deep layer of the incision is then closed with a 3-0 Vicryl and skin is closed with a 4-0 Vicryl. Steri-Strips are applied, sterile bandage applied. The patient tolerates the procedure with no immediate postop complication. MD ROMAN Quevedo/ROBERTO , 10:09 AM , 10:17 AM
[2018-05-07] MEDS ORDERED: *morphine SULFATE 4 MG/ML PERIprocedure ONLY ONE ×3 (10:45→11:19)
[2018-05-07] MEDS ORDERED: *Meperidine Inj 25 MG/ML Vial PERIprocedural Use ONLY ONE (10:58)
[2018-05-07] MEDS ORDERED: Neostigmine Inj 5 MG/5 ML Syringe IV.PUSH ONE (12:00)
[2018-05-07] MEDS ORDERED: Lidocaine PF 1% Inj 5 ML Syringe INFILTRATN ONE (12:00)
[2018-05-07] MEDS ORDERED: Glycopyrrolate Inj 1 MG/5 ML Syringe IV.PUSH ONE (12:00)
[2018-05-07 12:38] VITALS: RESP 18
[2018-05-07] MEDS ORDERED: Senna/Docusate Sodium 8.6/50 MG Tablet PO SCH (21:00)
[2018-05-11 17:55] VITALS: BP 124/57; PULSE 62; TEMP 97
[2018-05-11 18:00] VITALS: O2SAT 94
== END 2018-05-07 15:44 | disposition home or self-care (01) ==
LOC: HSDC 07:01 → N07 07:01
PROVIDERS: ADMIT Surgery; ATTEND Surgery